=== PATIENT | male | born 1955 | race Two or more races ===

== ENCOUNTER → 2024-03-09 | Outpatient (CLI) | payer OTHER, MEDICARE ==
[~2024-03-09] MED LIST: AMLO1TAB22 PO; ASPI-498 PO; DEXL60CA4 PO; EMPA1TAB PO; EZET10TA22 PO; FENO54TA4 PO
--- NOTE | 2024-03-09 10:20 | DVH ---
INDICATION: ABDOMINAL PAIN. Elevated LFTs. TECHNIQUE: Multiple real-time sonographic images of the abdomen were obtained. COMPARISON: None FINDINGS: The liver is increased in echogenicity. The liver measures 13.5 cm. Anechoic lesion near t he gallbladder fossa measures 2.2 x 1.4 x 1.8 cm compatible with a cyst. No intrahepatic biliary duct al dilatation is noted. Hepatopetal flow in the main portal vein. The gallbladder wall measures 0.2 cm and is unremarkable. No gallstones or sludge is seen. The com mon duct measures 0.4 cm and is unremarkable. No pericholecystic fluid is noted. The right kidney measures 10.1 cm. No hydronephrosis. The left kidney measures 9.2 cm cm. No hydron ephrosis. The spleen is within normal limits. The echogenicity is within normal limits. The pancreas is not well visualized due to obscuration from bowel gas. The visualized portions of the IVC and aorta are grossly unremarkable. IMPRESSION: 1. Hepatic steatosis. Hepatic cyst. 2. No acute abnormality.
== END | disposition home or self-care (01) ==
LOC: XYW 09:50
PROVIDERS: ATTEND Internal Medicine
DX: K76.0 Fatty (change of) liver, not elsewhere classified (principal); K76.89 Other specified diseases of liver; D75.1 Secondary polycythemia
CPT/HCPCS: 76700

== ENCOUNTER 2024-06-19 06:49 | Inpatient (IN) | payer OTHER, MEDICARE ==
[~2024-06-19] VITALS: Ht 177.8 cm; Wt 119.0 kg
[~2024-06-19 06:49] MED LIST changes: +ACET325T82 PO; -ASPI-498 PO; +CLOP75TA70 PO; -DEXL60CA4 PO; -EMPA1TAB PO; +EVOL140I SC; -FENO54TA4 PO; +TIRZ5INJ SC
[2024-06-19] MEDS: CELECOXIB 100 MG CAP ONE ×3 (09:09→10:40)
[2024-06-19] MEDS: TRANEXAMIC ACID 20 ML ONE (10:43)
[2024-06-19] MEDS ORDERED: MORPHINE SULF PF 5 MG/10 ML VIAL ONE (10:47)
[2024-06-19] MEDS: PREGABALIN CAPSULE 75 MG CAP PO ONE (10:49)
[2024-06-19] MEDS: ACETAMINOPHEN IV 1000 MG/100ML (10MG/ML) IV ONE (10:49)
[2024-06-19] MEDS: CELECOXIB 100 MG CAP PO ONE (10:49)
[2024-06-19] MEDS: ROPIVACAINE 0.5% (5MG/ML) 20ML AMPULE IJ ONE (10:53)
[2024-06-19] MEDS ORDERED: MIDAZOLAM HCL 2MG/2ML 2ml VIAL (1mg/ml) ONE (10:55)
[2024-06-19] MEDS ORDERED: fentaNYL CITRATE 100 MCG/2 ML VL ONE (10:55)
[2024-06-19] MEDS ORDERED: PROPOFOL 10 MG/ML 20 ML IV ONE (10:57)
[2024-06-19] MEDS ORDERED: ePHEDrine SULFATE 50 MG/ML AMP ONE (10:58)
[2024-06-19] MEDS: ACETAMINOPHEN IV 100 ML IV ONE (11:40)
[2024-06-19] MEDS: CEFEPIME 1GM/ 50ML 50 ML IV ONE (11:50)
[2024-06-19] MEDS: ceFAZolin 2 GM/D5W100ml 100 ML IV ONE (11:50)
[2024-06-19] MEDS ORDERED: ONDANSETRON HCL 4 MG/2 ML VIAL IV PRN (12:00)
[2024-06-19] MEDS ORDERED: MORPHINE SULFATE INJ 2 MG/ml SYRG IV PRN (12:00)
[2024-06-19] MEDS ORDERED: ALPRAZolam 0.5 MG TAB PO PRN (12:00)
[2024-06-19] MEDS ORDERED: DEXTROSE (50%) 50ML SYRG IV PRN ×2 (12:00→14:30)
[2024-06-19] MEDS ORDERED: NITROGLYCERIN 0.4 MG SL TAB SL PRN (12:00)
[2024-06-19] MEDS ORDERED: HYDROmorphone HCL 2 MG/ML VL/or syr IV PRN ×2 (12:00→13:30)
[2024-06-19] MEDS: KETOROLAC TROMETH 30 MG/ML 1ML VIAL ONE (12:29)
[2024-06-19] MEDS: BUPIVACAINE HCL 0.25% P/F 10 ML VIAL ONE (12:29)
[2024-06-19] MEDS: VANCOMYCIN HCL 1000 MG VL ONE (12:32)
[2024-06-19 13:18] VITALS: O2SAT 96
[2024-06-19] MEDS ORDERED: MEPERIDINE HCL (25 MG/ML) 1ML VIAL IV PRN (13:30)
[2024-06-19] MEDS ORDERED: ONDANSETRON HCL 4 MG/2 ML VIAL IV ONE (13:30)
--- NOTE | 2024-06-19 14:32 | DVHHP2 ---
Review of Systems Allergies: Coded Allergies: NO KNOWN ALLERGIES (Unverified , 07/16/20) Medications Current Medications Medications Dose Ordered Sig/Rhett Route Start Time Stop Time Status Last Admin Dose Admin Amlodipine Besylate 5 mg DAILY PO 06/20/24 10:00 EZETIMIBE 10 mg DAILY PO 06/20/24 10:00 Cefepime HCl 50 ml @ 12.5 mls/hr DAILY IV 06/20/24 10:00 UNV Pantoprazole Sodium 40 mg DAILY IV 06/20/24 10:00 Clopidogrel Bisulfate 75 mg DAILY PO 06/20/24 10:00 Cyclobenzaprine HCl 5 mg Q8HPRN PRN PO 06/19/24 12:00 Lactated Ringer's 1,000 ml @ 100 mls/hr Q10H IV 06/19/24 12:00 Sodium Chloride 10 ml Q8HR IV 06/19/24 14:00 Cefazolin Sodium 50 ml @ 50 mls/hr Q6H IV 06/19/24 12:00 06/20/24 00:59 Oxycodone/ Acetaminophen 1 tab Q4HP PRN PO 06/19/24 12:00 Hydromorphone HCl 1 mg Q2HP PRN IV 06/19/24 12:00 Oxycodone HCl 10 mg Q12HR PO 06/19/24 22:00 Ondansetron HCl 4 mg Q6HP PRN IV 06/19/24 12:00 Docusate Sodium 100 mg Q12HR PO 06/19/24 22:00 Diagnostic Test (Pha) 1 strip ACHS 06/19/24 17:00 Nitroglycerin 0.4 mg Q5MINP PRN SL 06/19/24 12:00 Morphine Sulfate 2 mg Q30M PRN IV 06/19/24 12:00 Alprazolam 1 mg [id number] PRN PO 06/19/24 12:00 Diagnostic Test (Pha) 1 strip ACHS 06/19/24 17:00 Insulin Human Regular HS SC 06/19/24 22:00 Insulin Human Regular AC SC 06/19/24 17:00 Dextrose 50 ml UD PRN IV 06/19/24 12:00 Exam Vital Signs Vital Signs Date Time Temp Pulse Resp B/P (MAP) Pulse Ox O2 Delivery O2 Flow Rate FiO2 06/19/24 13:18 96 Mask 7.0 06/19/24 13:18 96 06/19/24 08:45 97.6 85 20 130/87 (101) 97.6 Labs/Xrays Labs Test 06/19/24 09:10 Range/Units POC Glucose 82 70-106 mg/dl Assessment/Plan Assessment/Plan see dictated note Plan discussed with: Patient Date of Service: Jun 19, 2024 Billing Provider: JOSE HAIDER MD Common Visit Codes: [id number] INP/OBS CARE (HIGH) JOSE HAIDER MD Jun 19, 2024 14:32
--- NOTE | 2024-06-19 15:04 | DVH ---
CLINICAL INDICATION: S/P SURGERY TECHNIQUE: XY R KNEE 3V XRAY Comparison: None FINDINGS/IMPRESSION: : Expected findings post right knee arthroplasty.
[2024-06-19] MEDS ORDERED: ACCU-CHEK COMFORT CURVE STRIP VI SCH ×2 (17:00)
[2024-06-19] MEDS ORDERED: InsuLIN REG 1unit/0.01ml Soln (100units/ml) SC SCH ×2 (17:00→22:00)
[2024-06-19 17:20] VITALS: BP 128/78; PULSE 65; RESP 18; TEMP 97.3; O2SAT 97
[2024-06-19 20:00] VITALS: PULSE 68; RESP 18; O2SAT 98
[2024-06-19] MEDS: ceFAZolin 1GM/50ML 50 ML IV SCH (20:22)
[2024-06-19] MEDS: CYCLOBENZAPRINE HCL 10 MG TAB PO PRN (20:37)
[2024-06-19 21:00] VITALS: BP 128/86; PULSE 68; RESP 20; TEMP 97.3; O2SAT 95
[2024-06-19] MEDS: DOCUSATE SOD 100 MG CAP PO SCH (21:53)
[2024-06-19] MEDS: InsuLIN REG 1unit/0.01ml Soln (100units/ml) SC SCH (21:59)
[2024-06-19] MEDS: oxyCODONE ER 10 MG TAB PO SCH (22:00)
[2024-06-19] MEDS: LACTATED RINGER'S 1,000 ML IV SCH (22:00)
[2024-06-19] MEDS: SODIUM CHLOR 0.9% PF (SALINE LOCK) 10ML VIAL/SYR IV SCH (22:07)
[2024-06-19] MEDS: ACCU-CHEK COMFORT CURVE STRIP VI SCH (22:07)
[2024-06-20] VITALS (7 sets, daily range): BP systolic 120–148; BP diastolic 63–90; PULSE 68–98; RESP 16–20; TEMP 97.2–98.6; O2SAT 91–98
[2024-06-20] MEDS: HYDROmorphone HCL 2 MG/ML VL/or syr IV PRN (00:27)
[2024-06-20 02:15] LABS: Urine Bacteria None Seen /hpf (None Seen)
[2024-06-20] MEDS: ceFAZolin 1GM/50ML 50 ML IV SCH (02:32)
[2024-06-20 02:38] LABS: Urine Blood Negative /uL (Negative); Urine Clarity Clear (Clear); Urine Color Light-Yellow (Yellow); Urine Hyaline Cast FEW /lpf (0 - 2); Urine Mucus FEW (None Seen); Urine Protein, UAD TRACE (Negative); Urine Specific Gravity 1.025 (1.001-1.035); Urine Squamous Epithelial Cell None Seen /hpf (<5); Urine Urobilinogen Normal (Negative); Urine WBC < 1 /HPF (0-3); Urine pH 6.5 (5.0-9.0)
[2024-06-20 06:31] LABS: Basophils # (auto) 0 10 ^3/uL (0-0.2); Basophils % (auto) 0.3 % (0.0-2.0); Eosinophils # (auto) 0 10 ^3/uL (0-0.8); Eosinophils % (auto) 0.3 % (0.0-7.0); Hematocrit 40.4 % (41.0-53.0); Hemoglobin 13.5 g/dL (13.5-17.5); Lymphocytes # (auto) 1.3 10 ^3/uL (0.4-5.4); Lymphocytes % (auto) 18.1 % (10.0-50.0); Mean Corpuscular Hemoglobin 29.9 pg (28.0-32.0); Mean Corpuscular Hgb Conc. 33.4 g/dL (32.0-36.0); Mean Corpuscular Volume 89.5 fL (80.0-100.0); Monocytes % (auto) 13.7 % (0.0-12.0); Neutrophils # (auto) 4.9 10 ^3/uL (1.6-8.6); Neutrophils % (auto) 67.6 % (37.0-80.0); Platelet Count (auto) 176 10^3/uL (140-450); Red Blood Cells 4.51 10^6/uL (4.5-5.90); White Blood Cell 7.2 10^3/uL (4.4-10.8)
[2024-06-20 06:50] LABS: Alanine Aminotransferase 21 U/L (7-40); Albumin 3.9 g/dL (3.2-4.8); Alkaline Phosphatase 48 U/L (46-116); Anion Gap 9 (5-15); Aspartate Aminotransferase 17 U/L (13-40); BUN/Creatinine Ratio 14.4 (10.0-20.0); Blood Urea Nitrogen 14 mg/dL (9-23); Calcium 9.1 mg/dL (8.7-10.4); Carbon Dioxide 27 mmol/L (20-31); Chloride 102 mmol/L (98-107); Potassium 3.7 mmol/L (3.5-5.1); Sodium 138 mmol/L (136-145)
[2024-06-20 07:07] LABS: Glucose 114 mg/dL (74-106)
--- NOTE | 2024-06-20 07:53 | DVHPN2 ---
Progress Note Date Seen: Jun 20, 2024 Medical Necessity Reason Pt with a Central, PICC or Fol: No Subjective Patient reports: No new complaints Objective vital signs Vital Sign Date Time Temp Pulse Resp B/P (MAP) Pulse Ox O2 Delivery O2 Flow Rate FiO2 06/20/24 05:49 82 18 138/75 06/20/24 05:00 97.2 96 97.2 06/19/24 20:00 Room Air* 0 21 Total Intake and Output 06/19/24 06/19/24 06/20/24 15:00 23:00 07:00 Intake Total 350 ml 50 ml 50 ml Balance 350 ml 50 ml 50 ml medications Current Medications Medications Dose Ordered Sig/Rhett Route Start Time Stop Time Status Last Admin Dose Admin Amlodipine Besylate 5 mg DAILY PO 06/20/24 10:00 EZETIMIBE 10 mg DAILY PO 06/20/24 10:00 Cefepime HCl 50 ml @ 12.5 mls/hr DAILY IV 06/20/24 10:00 Future Hold Pantoprazole Sodium 40 mg DAILY IV 06/20/24 10:00 Clopidogrel Bisulfate 75 mg DAILY PO 06/20/24 10:00 Cyclobenzaprine HCl 5 mg Q8HPRN PRN PO 06/19/24 12:00 06/20/24 05:35 5 MG Lactated Ringer's 1,000 ml @ 100 mls/hr Q10H IV 06/19/24 12:00 06/19/24 22:00 100 MLS/HR Sodium Chloride 10 ml Q8HR IV 06/19/24 14:00 06/20/24 05:38 10 ML Oxycodone/ Acetaminophen 1 tab Q4HP PRN PO 06/19/24 12:00 Oxycodone HCl 10 mg Q12HR PO 06/19/24 22:00 Ondansetron HCl 4 mg Q6HP PRN IV 06/19/24 12:00 Docusate Sodium 100 mg Q12HR PO 06/19/24 22:00 06/19/24 21:53 100 MG Nitroglycerin 0.4 mg Q5MINP PRN SL 06/19/24 12:00 Morphine Sulfate 2 mg Q30M PRN IV 06/19/24 12:00 Alprazolam 1 mg [id number] PRN PO 06/19/24 12:00 Hydromorphone HCl 1 mg Q3HP PRN IV 06/19/24 14:45 06/20/24 05:19 1 MG Diagnostic Test (Pha) 1 strip ACHS 06/19/24 17:00 06/20/24 05:38 1 STRIP Insulin Human Regular ACHS SC 06/19/24 17:00 Dextrose 50 ml UD PRN IV 06/19/24 14:30 Cefazolin Sodium 50 ml @ 50 mls/hr Q6H IV 06/20/24 02:00 06/20/24 08:59 06/20/24 02:32 50 MLS/HR Examination: GENERAL:Normal, MSK:Abnormal laboratory and microbiology Laboratory Tests 06/20/24 05:46 Test 06/20/24 05:46 Range/Units Serum Glucose 114 H 74-106 mg/dL Problem List/Assessment/Plan Problem List/Assessment/Plan 69 year old male who is s/p Right TKA POD 1 1. Patient discussed desire for in home therapy for one week, states he found a company that accepts his insurance. will bring written order on 06/21/2024 2. Pain control 3. CPM as ordered 4. Physical therapy 5. D/C planning for home on 06/21/2024, will work on pain control for today Plan discussed with: Patient Date of Service: Jun 20, 2024 Billing Provider: RAYMOND ESPITIA MD Common Visit Codes: NOT BILLABLE ADALBERTO ACKERMAN NP Jun 20, 2024 07:53
[2024-06-20] MEDS: CLOPIDOGREL BISULFATE 75 MG TAB PO SCH (08:20)
[2024-06-20] MEDS: PANTOPRAZOLE 40 MG/10 ML VIAL INJ IV SCH (08:21)
[2024-06-20] MEDS: amLODIPine BESYLATE 5 MG TAB PO SCH (08:25)
[2024-06-20] MEDS: EZETIMIBE 10 MG TAB PO SCH (08:35)
[2024-06-20] MEDS ORDERED: CEFEPIME 1GM/ 50ML 50 ML IV SCH (10:00)
--- NOTE | 2024-06-20 10:54 | DVHPN2 ---
Progress Note Date Seen: Jun 20, 2024 Medical Necessity Reason Pt with a Central, PICC or Fol: No Subjective Patient reports: No new complaints Review of Systems: HEENT:Normal, CVS:Normal, RESPIRATORY:Normal, GI:Normal, :Normal, MSK:Normal, NEURO:Normal Objective vital signs Vital Sign Date Time Temp Pulse Resp B/P (MAP) Pulse Ox O2 Delivery O2 Flow Rate FiO2 06/20/24 09:58 78 18 116/69 06/20/24 05:00 97.2 96 97.2 06/19/24 20:00 Room Air* 0 21 Total Intake and Output 06/19/24 06/19/24 06/20/24 15:00 23:00 07:00 Intake Total 350 ml 50 ml 50 ml Balance 350 ml 50 ml 50 ml medications Current Medications Medications Dose Ordered Sig/Rhett Route Start Time Stop Time Status Last Admin Dose Admin Amlodipine Besylate 5 mg DAILY PO 06/20/24 10:00 06/20/24 08:25 5 MG EZETIMIBE 10 mg DAILY PO 06/20/24 10:00 Cefepime HCl 50 ml @ 12.5 mls/hr DAILY IV 06/20/24 10:00 Hold Pantoprazole Sodium 40 mg DAILY IV 06/20/24 10:00 06/20/24 08:21 40 MG Clopidogrel Bisulfate 75 mg DAILY PO 06/20/24 10:00 06/20/24 08:20 75 MG Cyclobenzaprine HCl 5 mg Q8HPRN PRN PO 06/19/24 12:00 06/20/24 05:35 5 MG Lactated Ringer's 1,000 ml @ 100 mls/hr Q10H IV 06/19/24 12:00 06/20/24 08:36 100 MLS/HR Sodium Chloride 10 ml Q8HR IV 06/19/24 14:00 06/20/24 05:38 10 ML Oxycodone/ Acetaminophen 1 tab Q4HP PRN PO 06/19/24 12:00 Oxycodone HCl 10 mg Q12HR PO 06/19/24 22:00 06/20/24 08:19 10 MG Ondansetron HCl 4 mg Q6HP PRN IV 06/19/24 12:00 Docusate Sodium 100 mg Q12HR PO 06/19/24 22:00 06/20/24 08:21 100 MG Nitroglycerin 0.4 mg Q5MINP PRN SL 06/19/24 12:00 Morphine Sulfate 2 mg Q30M PRN IV 06/19/24 12:00 Alprazolam 1 mg [id number] PRN PO 06/19/24 12:00 Hydromorphone HCl 1 mg Q3HP PRN IV 06/19/24 14:45 06/20/24 09:58 1 MG Diagnostic Test (Pha) 1 strip ACHS 06/19/24 17:00 06/20/24 05:38 1 STRIP Insulin Human Regular ACHS SC 06/19/24 17:00 Dextrose 50 ml UD PRN IV 06/19/24 14:30 Examination: GENERAL:Normal, HEENT:Normal, NECK:Normal, LUNGS:Normal, CVS:Normal, ABDOMEN:Normal, MSK:Normal, MSK:Abnormal (right knee dressing), SKIN:Normal, NEURO:Normal, :Normal laboratory and microbiology Laboratory Tests 06/20/24 05:46 Test 06/20/24 05:46 Range/Units Serum Glucose 114 H 74-106 mg/dL Problem List/Assessment/Plan Problem List/Assessment/Plan #1 htn: cont meds #2 hyperlipidemia #3 obesity: on mounjaro #4 cad s/p stents #5 s/p right knee surg for djd: pt, pain control Plan discussed with: Patient My Orders My Orders Orders - JOSE HAIDER MD Procedure Category Date Status Time Hydromorphone PHA 06/19/24 In Process Injection (Dilaudid 14:45 Glucose Blood PHA 06/19/24 In Process (Accu-Chek Comfort 17:00 Insulin R (Human) PHA 06/19/24 In Process (Insulin R) 17:00 Dextrose 50% Syringe PHA 06/19/24 In Process 14:30 Date of Service: Jun 20, 2024 Billing Provider: JOSE HAIDER MD Common Visit Codes: [id number] INP/OBS CARE(HIGH) JOSE HAIDER MD Jun 20, 2024 10:54
--- NOTE | 2024-06-20 11:18 | DVHHP ---
ADMIT DATE: 06/19/2024 HISTORY OF PRESENT ILLNESS: The patient is a 69-year-old gentleman who has been admitted after he underwent surgery on the right knee for DJD of the knee. The patient at this time has no significant pain. No chest pain or shortness of breath. No nausea or vomiting. REVIEW OF SYSTEMS: Review of rest of systems otherwise currently negative. PAST MEDICAL HISTORY: Significant for diabetes, hypertension, hyperlipidemia, coronary artery disease status post stents. ALLERGIES: No known drug allergies. SOCIAL HISTORY: Denies smoking or alcohol. MEDICATIONS: Include Mounjaro, Plavix, amlodipine, Repatha. FAMILY HISTORY: Negative. PHYSICAL EXAMINATION: GENERAL: The patient is awake and alert. VITAL SIGNS: Temperature of 97.2, pulse 68 per minute, blood pressure was 106/73. SHEENT: Unremarkable. There is no JVD. No pedal edema. LUNGS: Equal bilaterally. No added sounds. CARDIOVASCULAR: S1, S2 is regular. No murmurs. ABDOMEN: Soft. There is no organomegaly. NEUROLOGIC: Nonfocal. MUSCULOSKELETAL: The right knee is currently in a dressing. ASSESSMENT AND PLAN: * History of diabetes mellitus. * Obesity. * Hyperlipidemia. * Coronary artery disease, status post stents for which he will continue on Plavix. * Hypertension for which he will continue amlodipine. * Status post right knee surgery for degenerative joint disease of the knee. The patient will be placed on pain medications and receive physical therapy. MD HERBERTH Florez/BREANA TID: [id number] RECEIPT: [id number]
[2024-06-20] MEDS: OXYCODONE W/ ACETAMINOPHEN 5/325MG TABLET PO PRN (13:47)
--- NOTE | 2024-06-20 15:19 | DVHOP2 ---
Operative Report - 2 Report Details Date: 06/20/24 Preop Diagnosis: Right knee osteoarthritis Postop Diagnosis: as above Surgeon: Fredy Weber MD Anesthesiologist: Brenda BHATT Anesthesia: Regional Implant: [employer] [facility] Uncemented CR Femur siz 5 Tibia size 4 12 mm deep dish CR poly 32 mm patella Consent: The patient was informed of the risks and benefits of the procedure. These include but are not limited to complications of anesthesia, postoperative infection, incomplete relief of symptoms, recurrence of symptoms, damage to blood vessels, nerves and tendons, deep venous thrombosis, pulmonary embolism and possible need for repeat surgery in the future. Estimated Blood Loss: 50cc Name of Procedure Performed Right total knee arthroplasty using computer navigation Procedure Details Procedure Details: FINDINGS: degenerative disease with grade IV changes with varus deformity 15 degrees INDICATION: This patient has failed non-operative treatments for knee arthritis and is now indicated for a total knee replacement. Preoperatively in the waiting area as well as in the office, I had a long discussion with the patient regarding the plan, the expected outcome, the risks, benefits, and alternatives of surgery. The risks include, but are not limited to, infection (which may require future surgery and removal of implants) , bleeding (which may require a transfusion), damage to nerves, arteries, veins, tendons, muscles and other adjacent structures. Also discussed the possibilities of intraoperative fractures, implant loosening, heterotopic bone formation, and revision for variety of reasons, and medical complications etc. This was discussed at length and consent has been obtained. DESCRIPTION OF PROCEDURE: In the preoperative holding area, the consent was reviewed and the appropriate extremity was verified by the patient and marked with my initials. The patient was then transferred to the operating theatre. Appropriate anesthesia was induced. All bony prominences were well padded. A time out was performed verifying the side and site of surgery according to standard protocol. Preoperative antibiotics were given 10 minutes prior to tourniquet inflation. Tranexamic was given. A well padded thigh tourniquet was applied. The extremity was then prepped and draped in the usual sterile fashion. The extremity was exsanguinated and the tourniquet was inflated. We then made a mid-line incision, which we continued to the underlying capsular tissue. We performed a medial parapatellar arthrotomy. We periosteally exposed the proximal tibia, excised the anterior fat pad and synovium from the distal aspect of the femur. We then subluxed the patella and brought the knee up into flexion. The lateral meniscus medial meniscus and ACL were released. We used the appropriate guide with attached computer navigation to secure the distal femoral cutting block to the femur with pins and completed the distal femoral cut in 0 degrees to the mechanical axis with an oscillating saw. We removed the distal femoral cutting block and turned our attention to the tibia. We used the extramedullary tibial alignment guide with computer navigation to secure the proximal tibial cutting block to the tibia with pins, setting it for a 1mm cut from the more involved side, medially and completed the proximal tibial cut. We then used the spacer block and alignment toni to check the varus- valgus angle of our cuts and the extension gap. Patient noted to be tight medially that was tight so medial release done. The knee was then balanced in extension to varus/valgus stress. We marked our femoral anatomy, including Young's line and the epicondylar axis. Using that as a rotational guide, we used the sizing guide to size our femur properly, using a stylus to ensure there would be no notching. We then used the AP cutting guide to make our anterior and posterior cuts and chamfer cuts with an oscillating saw. We again checked the flexion and extension gaps and coronal balancing. Next, we sized our tibia and secured a baseplate with appropriate rotation with pins. We placed a trial femur in position and completed preparation of the notch with reamers and box osteotome and placed a trial notch in position. We used trials to choose our liner size and then placed the liner in place and reduced the knee. We used an oscillating saw to resurface the patella, and used a guide to choose the button size and completed patella preparation with the drill. We then placed a trial button in place. At this point, we checked our seven parameters: 1) Limb alignment 2) Extension 3) Flexion against gravity 4) Flexion stability 5) Varus-valgus balancing 6) Component rotation 7) Patella tracking We were satisfied with these and removed all trials with the exception of the baseplate. We completed preparation of the tibia with the appropriate reamer and keel impactor and then removed the baseplate. We placed a bone plug in the distal femur and then irrigated and dried all bony surfaces and injected our pain cocktail. We thumb impacted into the proximal tibia, distal femur and patella and impacted our tibial, femoral and patellar components into position. We impacted our liner and reduced the knee and held it with axial loading. We did a rowdy-articular cocktail block. We released the tourniquet and achieved hemostasis where necessary. A dilute betadine solution (17.5mL in 500mL saline) was used to wash the joint and left to sit for 3 minutes. This was then irrigated out with copious amounts of pulse lavage. We sprinkled 1g vancomycin powder below the fascia and 1g above the fascia. We copiously irrigated the knee. We re-checked our seven parameters. We closed our capsular incision with a PDS style suture. We irrigated further. We closed the subcutaneous tissue with Vicryl suture and re-approximated the skin with [place]. We verified all lower extremity compartments were soft and compressible and that we had intact distal pulses. We wrapped the extremity in sterile Webril and daja bandage. The patient was transferred to the recovery room in stable condition. Condition Good Disposition Still a Patient FREDY WEBER MD Jun 20, 2024 15:19
[2024-06-21 05:00] VITALS: BP 136/78; PULSE 100; RESP 18; TEMP 98.6; O2SAT 95
[2024-06-21] MEDS: PANTOPRAZOLE 40 MG TAB PO SCH (05:49)
[2024-06-21 07:35] LABS: Hematocrit 37.6 % (41.0-53.0); Hemoglobin 13.1 g/dL (13.5-17.5)
--- NOTE | 2024-06-21 07:41 | DVHPN2 ---
Progress Note Date Seen: Jun 21, 2024 Medical Necessity Reason Pt with a Central, PICC or Fol: No Objective vital signs Vital Sign Date Time Temp Pulse Resp B/P (MAP) Pulse Ox O2 Delivery O2 Flow Rate FiO2 06/21/24 05:00 98.6 100 18 136/78 (97) 95 98.6 06/20/24 20:00 Room Air* 0 21 Total Intake and Output 06/20/24 06/20/24 06/21/24 15:00 23:00 07:00 Intake Total 400 ml 700 ml Output Total 600 ml Balance 400 ml 100 ml medications Current Medications Medications Dose Ordered Sig/Rhett Route Start Time Stop Time Status Last Admin Dose Admin Amlodipine Besylate 5 mg DAILY PO 06/20/24 10:00 06/20/24 08:25 5 MG Cefepime HCl 50 ml @ 12.5 mls/hr DAILY IV 06/20/24 10:00 Hold Clopidogrel Bisulfate 75 mg DAILY PO 06/20/24 10:00 06/20/24 08:20 75 MG Cyclobenzaprine HCl 5 mg Q8HPRN PRN PO 06/19/24 12:00 06/20/24 13:50 5 MG Sodium Chloride 10 ml Q8HR IV 06/19/24 14:00 06/21/24 06:00 10 ML Oxycodone/ Acetaminophen 1 tab Q4HP PRN PO 06/19/24 12:00 06/21/24 05:49 1 TAB Oxycodone HCl 10 mg Q12HR PO 06/19/24 22:00 06/20/24 21:53 10 MG Ondansetron HCl 4 mg Q6HP PRN IV 06/19/24 12:00 Docusate Sodium 100 mg Q12HR PO 06/19/24 22:00 06/20/24 21:53 100 MG Nitroglycerin 0.4 mg Q5MINP PRN SL 06/19/24 12:00 Morphine Sulfate 2 mg Q30M PRN IV 06/19/24 12:00 Alprazolam 1 mg [id number] PRN PO 06/19/24 12:00 Hydromorphone HCl 1 mg Q3HP PRN IV 06/19/24 14:45 06/21/24 03:06 1 MG Diagnostic Test (Pha) 1 strip ACHS 06/19/24 17:00 06/21/24 05:50 1 STRIP Insulin Human Regular ACHS SC 06/19/24 17:00 Dextrose 50 ml UD PRN IV 06/19/24 14:30 Pantoprazole Sodium 40 mg DAILY@0600 PO 06/21/24 06:00 06/21/24 05:49 40 MG laboratory and microbiology Laboratory Tests 06/20/24 05:46 Test 06/20/24 05:46 Range/Units Serum Glucose 114 H 74-106 mg/dL Problem List/Assessment/Plan Problem List/Assessment/Plan 69 year old male who is s/p Right TKA POD 2 1. Patient given written orders for outpatient and inpatient physical therapy for companies in his area 2. Pain control-prescription for percocet sent electronically to preferred pharmacy 3. CPM as ordered 4. DVT ppx-continue with plavix post-op for DVT ppx 5. follow up in 2 weeks at [facility] ortho clinic 6. clear for discharge home from orthopedic standpoint with the following recommendations: Total Knee Arthroplasty Discharge Instructions Wound Care 1. You will likely have a gel-type dressing over your wound, you may keep this on for 7-14 days after leaving the hospital until your first post-op visit, unless it becomes soiled or your skin becomes irritated. If a wound vac dressing is placed on your knee this is to be left in place for one week and will be changed as needed. After your remove the dressing or wound vac, the home health nurse may place clean dry dressing over your wound. Keep wound covered, clean and dry for two weeks. 2. [place] will be removed during your initial post-op visit. If you have concerns about our wound, please call the office immediately. If nervous about staple removal can take pain pill one hour prior to appointment. 3. If there is drainage from your wound, change the dressing daily until it stops. If drainage lasts more than 10 days, call our office. 4. Low grade (up to 100 degrees) fever is common for the first week after surgery. You should take your temperature daily. If you have fevers of 101 or more, please call the office. Medication Management 1. You will be discharged with pain medication, a blood thinner (unless you were previously on a blood thinner prior to surgery) and stool softener. Please follow the instructions regarding these medications as provided by your nurse at the hospital upon discharge. 2. Blood clots in the leg are a known complication of surgery. It is very important that you take the medication to protect against clots. Depending on what you are discharged on typically it is Lovenox 40mg daily for 2 weeks or Aspirin 81mg twice daily for 4 weeks. After you finish this, you should then take baby Aspirin (81mg) once daily for 2 weeks. If you were on a blood thinner such as Eliquis or Plavix prior to surgery you may resume that as prescribed and will not require any additional blood thinners. 3. You should restart all of your prescription medications once discharged from the hospital/surgery center unless specifically instructed otherwise. 4. Herbal supplements may be restarted 2 weeks after surgery. 5. If you have been given Coumadin as a blood thinner, please follow up with your java websphere developer during the first two weeks after surgery to review medications and overall medical well-being. 6. Please note that narcotic pain medication may cause constipation. Please remember to take stool softeners (Colace) when using narcotics to help reduce the change of constipation. You should not use alcohol together with narcotic medication. Activity 1. You can bear as much weight as you tolerate on your knee unless specifically instructed otherwise. You may use the walking aid which you were discharged with and switch to a cane whenever you feel comfortable doing so. You should use an assistive device until you can walk comfortably without it. Keep in mind that every patient moves at their own speed of recovery so take your time. 2. A physical therapist will visit you at home. 3. Use CPM machine as instructed (6 hours a day) and increase flexion by 5 degrees daily. 4. High impact activity such as jumping, aerobics, tennis, and skiing are not permitted during the first 3 months after surgery. These activities can contribute to accelerated wear and should be done with caution after this time. Discuss this with your surgeon if you have questions. 5. Although a bath or whirlpool is NOT permitted during the first 2-3 weeks, you may shower as soon as you get home from the hospital provided there is no wound drainage. Place a dressing or covering over the wound when you shower. 6. Swimming is not permitted until the wound is healed, which typically occurs approximately 3-4 weeks after surgery. [place] Instructions 1. Driving is not permitted within the first 2 weeks. 2. Your first postoperative visit will take place 2 weeks after discharge. Please call the office once you are home from the hospital to arrange this appointment. 3. Antibiotic preventative treatment is required before dental or other invasive procedures. Please ask your surgeon about this at your first postoperative visit. If you experience chest pain, shortness of breath or severe painful calf swelling, go to the nearest emergency room to be evaluated. Please call our office once your situation is stabilized. Plan discussed with: Patient Date of Service: Jun 21, 2024 Billing Provider: RAYMOND ESPITIA MD Common Visit Codes: NOT BILLABLE ADALBERTO ACKERMAN NP Jun 21, 2024 07:41
[2024-06-21 08:00] VITALS: PULSE 100; RESP 18; O2SAT 95
[2024-06-21 09:00] VITALS: BP 151/72; PULSE 96; RESP 20; TEMP 97.5; O2SAT 94
--- NOTE | 2024-06-21 10:42 | DVHDS2 ---
Discharge Summary Date of Admission Jun 19, 2024 at 11:47 Date of Discharge: Jun 21, 2024 Labs/Diagnostic Data: Laboratory Results Test 06/21/24 05:55 06/21/24 05:10 06/20/24 05:46 06/20/24 01:50 POC Glucose 120 mg/dl (70-106) Hemoglobin 13.1 g/dL (13.5-17.5) Hematocrit 37.6 % (41.0-53.0) White Blood Count 7.2 10^3/uL (4.4-10.8) Red Blood Count 4.51 10^6/uL (4.5-5.90) Mean Corpuscular Volume 89.5 fL (80.0-100.0) Mean Corpuscular Hemoglobin 29.9 pg (28.0-32.0) Mean Corpuscular Hemoglobin Concent 33.4 g/dL (32.0-36.0) Red Cell Distribution Width 14.0 % (11.8-14.3) Platelet Count 176 10^3/uL (140-450) Mean Platelet Volume 8.8 fL (6.9-10.8) Neutrophils (%) (Auto) 67.6 % (37.0-80.0) Lymphocytes (%) (Auto) 18.1 % (10.0-50.0) Monocytes (%) (Auto) 13.7 % (0.0-12.0) Eosinophils (%) (Auto) 0.3 % (0.0-7.0) Basophils (%) (Auto) 0.3 % (0.0-2.0) Neutrophils # (Auto) 4.9 10 ^3/uL (1.6-8.6) Lymphocytes # (Auto) 1.3 10 ^3/uL (0.4-5.4) Monocytes # (Auto) 1.0 10 ^3/uL (0-1.3) Eosinophils # (Auto) 0 10 ^3/uL (0-0.8) Basophils # (Auto) 0 10 ^3/uL (0-0.2) Nucleated Red Blood Cells 0.0 % Sodium Level 138 mmol/L (136-145) Potassium Level 3.7 mmol/L (3.5-5.1) Chloride Level 102 mmol/L (98-107) Carbon Dioxide Level 27 mmol/L (20-31) Anion Gap 9 (5-15) Blood Urea Nitrogen 14 mg/dL (9-23) Creatinine 0.97 mg/dL (0.700-1.30) Glomerular Filtration Rate Calc 85 mL/min (>90) BUN/Creatinine Ratio 14.4 (10.0-20.0) Serum Glucose 114 mg/dL (74-106) Hemoglobin A1c 5.5 % A1C (<5.7) Calcium Level 9.1 mg/dL (8.7-10.4) Total Bilirubin 1.0 mg/dL (0.2-1.0) Aspartate Amino Transferase (AST) 17 U/L (13-40) Alanine Aminotransferase (ALT) 21 U/L (7-40) Alkaline Phosphatase 48 U/L (46-116) Total Protein 6.0 g/dL (5.7-8.2) Albumin 3.9 g/dL (3.2-4.8) Urine Color Light-yellow (Yellow) Urine Clarity Clear (Clear) Urine pH 6.5 (5.0-9.0) Urine Specific [place] 1.025 (1.001-1.035) Urine Protein Trace (Negative) Urine Ketones Negative (Negative) Urine Blood Negative /uL (Negative) Urine Nitrite Negative (Negative) Urine Bilirubin Negative (Negative) Urine Urobilinogen Normal mg/dL (Negative) Urine Leukocyte Esterase Negative /uL (Negative) Urine RBC <1 /hpf (0 - 3) Urine Microscopic WBC < 1 /HPF (0-3) Urine Squamous Epithelial Cells None seen /hpf (<5) Urine Bacteria None seen /hpf (None Seen) Urine Hyaline Casts Few /lpf (0 - 2) Urine Mucus Few (None Seen) Urine Glucose Normal mg/dL (Normal) Other Laboratory Tests 06/21/24 05:10 06/20/24 05:46 Brief Hx & Hospital Course: see dictated note Condition at Discharge: Good Final Diagnosis/Problems List RIGHT KNEE SURGERY Discharge Disposition: Home Discharge Instruct/Medications Diet: Cardiac 2g Na,low cholest Activity: No Restrictions, As Tolerated Follow Up/Referral: [facility] Medications: RESUME HOME MEDS Discharge Statement: "Patient was advised to return to the ER or call 911 if any headaches, dizziness, shortness of breath, chest pain, abdominal pain, bleeding, fevers, or worsening of medical condition. Patient was counseled about treatment plan, medications, possible side effects, patientverbalized understanding. All questions were answered to the best of my ability. This discharge took greater then 30 minutes in planning, reviewing documentation, counseling the patient, and discussing with other team members." ASSESSMENT ASSESSMENT Assessment RIGHT KNEE SURGERY Date of Service: Jun 21, 2024 Billing Provider: JOSE HAIDER MD Common Visit Codes: 66590-KQM/OBS DISCH DAY >30min JOSE HAIDER MD Jun 21, 2024 10:42
--- NOTE | 2024-06-21 10:57 | DVHDS ---
DATE OF DISCHARGE: 06/21/2024 HISTORY OF PRESENT ILLNESS: The patient is a 69-year-old gentleman who was admitted after he underwent surgery on the right knee for DJD. He has a history of hypertension, diabetes, coronary artery disease and hyperlipidemia. HOSPITAL COURSE: The patient did well postoperatively. His hemoglobin has been stable. He has been ambulating with physical therapy. Hemoglobin A1c was 5.5. The patient will now be discharged home to resume his home medications and follow up with his primary and orthopedic doctor. He will get home health physical therapy and outpatient physical therapy. FINAL DIAGNOSES: Therefore, * Coronary artery disease, status post stent. * Obesity. * Hyperlipidemia. * Hypertension. * Status post right knee surgery for degenerative joint disease of the knee. Time spent in discharge planning and review of plan with the patient and nursing was 38 minutes. MD HERBERTH Florez/ASHLEYA TID: [id number] RECEIPT: [id number]
[2024-06-21 12:09] VITALS: BP 136/83; PULSE 96; RESP 20; TEMP 97.5; O2SAT 94
[2024-06-21 12:32] VITALS: BP 125/75; PULSE 85; RESP 20
== END 2024-06-21 13:12 | disposition home or self-care (01) | DRG 470 ==
LOC: SUR 06:49 → OVERFLOW 11:47 → TELE-EAST 17:20 → EAST 06-20 21:11
PROVIDERS: ADMIT Internal Medicine; ATTEND Internal Medicine
PROC: 8E0YXBZ Computer Assisted Procedure of Lower Extremity (ICD-10-PCS; 2024-06-19)
PROC: 0SRC0JA Replacement of Right Knee Joint with Synthetic Substitute, Uncemented, Open Approach (ICD-10-PCS; principal; 2024-06-19 11:46)
DX: M17.11 Unilateral primary osteoarthritis, right knee (principal); E66.9 Obesity, unspecified; E78.5 Hyperlipidemia, unspecified; I10 Essential (primary) hypertension; Z68.28 Body mass index [BMI] 28.0-28.9, adult; E11.9 Type 2 diabetes mellitus without complications; I25.10 Atherosclerotic heart disease of native coronary artery without angina pectoris; Z96.651 Presence of right artificial knee joint; Z79.02 Long term (current) use of antithrombotics/antiplatelets; Z95.5 Presence of coronary angioplasty implant and graft
CPT/HCPCS: 36415; 73562; 80053; 81001; 82962; 83036; 85014; 85018; 85025; 86850; 86900; 86901; 97110; 97116; 97163; G0378; J0131; J1885; J2250; J2470; J2704; J3490